=== PATIENT | female | born 1990 | race American Indian/Alaskan Native ===

== ENCOUNTER 2016-04-03 16:20 | Emergency (ER) | payer MEDICAID | END 2016-04-03 17:04 | disposition left against medical advice (07) | LOC: ED 16:20 | DX: Z53.21 Procedure and treatment not carried out due to patient leaving prior to being seen by health care provider (principal) ==

== ENCOUNTER 2016-08-29 15:33 | Emergency (ER) | payer MEDICAID ==
[2016-08-29] MEDS ORDERED: MOTRIN PO ONE (16:14)
--- NOTE | 2016-08-29 16:43 | Emergency Department Report ---
ED Syncope HPI - General Chief Complaint: Syncope Stated Complaint: SYNCOPE EPISODE Time Seen by Provider: 08/29/16 16:06 Source: patient, EMS Exam Limitations: no limitations - History of Present Illness Initial Comments: 26-year-old female presents to the emergency department via EMS following a syncopal episode. Patient states that earlier today she tripped and fell while walking her dog. She states she hit her back on the sidewalk. She was going to come to the emergency department at that time, but her dog ran away. She states she tried to go after her dog, but he came extremely hot. She reports feeling lightheaded. She then sat down, and states the next thing she remembers the paramedics were at her side. She denies chest pain or shortness of breath prior to passing out. There were no palpitations. Patient is complaining of low back pain secondary to the fall. She denies numbness or tingling. There has been no nausea or vomiting. There are no other complaints. Timing/Prior Episodes: single episode today Precipitating Factors: Positive: lightheadedness Context: activity Loss of Consciousness: brief (seconds) Current Symptoms: back to normal - Related Data Allergies/Adverse Reactions: Allergies No Known Allergies Allergy (Verified 05/19/15 01:37) Home Medications: Ambulatory Orders Cyclobenzaprine [Flexeril] 10 mg PO TID PRN #14 tablet 08/29/16 ED Review of Systems ROS: Stated complaint: SYNCOPE EPISODE Other details as noted in HPI Comment: All other systems reviewed and negative Cardiovascular: syncope Musculoskeletal: back pain ED Past Medical Hx - Past Medical History Previous Medical History?: Yes Hx Seizures: Yes Hx Psychiatric Treatment: Yes (bipolar, ADHD) Hx Asthma: Yes - Surgical History Past Surgical History?: Yes Additional Surgical History: skin graft - Family History Family history: no significant - Social History Smoking Status: Never Smoker Substance Use Type: None - Medications Home Medications: Home Medications Medication Instructions Recorded Confirmed Last Taken Type Cyclobenzaprine [Flexeril] 10 mg PO TID PRN #14 tablet 08/29/16 Unknown Rx ED Physical Exam - General Limitations: No Limitations General appearance: alert, in no apparent distress - Head Head exam: Present: atraumatic, normocephalic - Eye Eye exam: Present: normal appearance, PERRL, EOMI - ENT ENT exam: Present: normal exam, normal orophraynx, mucous membranes moist - Neck Neck exam: Present: normal inspection, full ROM. Absent: tenderness - Respiratory Respiratory exam: Present: normal lung sounds bilaterally. Absent: respiratory distress - Cardiovascular Cardiovascular Exam: Present: regular rate, normal rhythm, normal heart sounds - GI/Abdominal GI/Abdominal exam: Present: soft, normal bowel sounds. Absent: distended, tenderness - Extremities Exam Extremities exam: Present: normal inspection, full ROM. Absent: tenderness - Back Exam Back exam: Present: normal inspection, full ROM, tenderness, muscle spasm, paraspinal tenderness (bilateral lumbar to lower thoracic region). Absent: vertebral tenderness - Neurological Exam Neurological exam: Present: alert, oriented X3. Absent: motor sensory deficit - Skin Skin exam: Present: warm, dry, intact ED Course Vital Signs 08/29/16 08/29/16 08/29/16 16:10 17:49 17:55 Temperature 98.8 F Pulse Rate 75 93 H Respiratory 16 18 18 Rate Blood Pressure 122/44 Blood Pressure 122/44 104/55 [Left] O2 Sat by Pulse 96 99 Oximetry ED Medical Decision Making - Lab Data Result diagrams: 08/29/16 16:33 08/29/16 16:33 - Medical Decision Making Lab results reviewed and discussed with the patient. Patient reports feeling better following IV fluids and oral Flexeril. Patient will be discharged home at this time. - Differential Diagnosis vasovagal syncope, dehydration, muscle spasm Critical care attestation.: If time is entered above; I have spent that time in minutes in the direct care of this critically ill patient, excluding procedure time. ED Disposition Clinical Impression: Syncope and collapse, Muscle spasm of back Disposition: DC-01 TO HOME OR SELFCARE Is pt being admited?: No Condition: Stable Instructions: Syncope (ED), Muscle Spasm (ED) Prescriptions: Cyclobenzaprine [Flexeril] 10 mg PO TID PRN #14 tablet PRN Reason: Muscle Spasm Referrals: PRIMARY CARE, [Primary Care Provider] - 3-5 Days Time of Disposition: 19:07
[2016-08-29 16:51] LABS: Basophils % (Auto) 0.4 % (0.0-1.8); Hematocrit 36.7 % (30.3-42.9); Hemoglobin 11.9 gm/dl (10.1-14.3); Mean Corpuscular HGB Conc 33 % (30-34); Mean Corpuscular Hemoglobin 27 pg (28-32); Mean Corpuscular Volume 83 fl (79-97); Platelet Count 229 K/mm3 (140-440); Red Blood Count 4.41 M/mm3 (3.65-5.03); Red Cell Distribution Width 14.9 % (13.2-15.2); White Blood Count 8.4 K/mm3 (4.5-11.0)
[2016-08-29] MEDS ORDERED: NACL 0.9% 1000 ML 1,000 ML ONE (16:58)
[2016-08-29 17:08] LABS: Anion Gap 17 mmol/L; BUN/Creatinine Ratio 11.42; Blood Urea Nitrogen 8 mg/dL (7-17); Calcium 8.2 mg/dL (8.4-10.2); Carbon Dioxide 23 mmol/L (22-30); Chloride 99.9 mmol/L (98-107); Glucose 81 mg/dL (65-100); Potassium 3.6 mmol/L (3.6-5.0); Sodium 136 mmol/L (137-145)
[2016-08-29] MEDS ORDERED: NACL 0.9% 1000 ML 1,000 ML IV ONE (17:08)
[2016-08-29] MEDS ORDERED: FLEXERIL PO ONE (17:45)
[2016-08-29 18:24] VITALS: BP 104/55
== END 2016-08-29 19:15 | disposition home or self-care (01) ==
LOC: ED 15:33
DX: R55 Syncope and collapse (principal); M62.830 Muscle spasm of back; F31.9 Bipolar disorder, unspecified; J45.909 Unspecified asthma, uncomplicated
CPT/HCPCS: 36415; 80048; 83735; 84703; 85025; 96360; 99284; J7030

== ENCOUNTER 2016-10-26 15:01 | Emergency (ER) | payer MEDICAID ==
[2016-10-26] MEDS ORDERED: TYLENOL #3 PO ONE (18:39)
--- NOTE | 2016-10-26 18:45 | Emergency Department Report ---
ED General Adult HPI - General Chief complaint: Dental/Oral Stated complaint: TOOTHACHE Time Seen by Provider: 10/26/16 18:39 Source: patient, RN notes reviewed Mode of arrival: Ambulatory Limitations: No Limitations - History of Present Illness Initial comments: This is a 26-year-old female. She is previously unknown to me. She reports that she is not . She presents to the ER today complaining of dental pain in her right lower molar, tooth #32. The pain is sharp. It is achy. It increases with palpation and when she eats and drinks. She endorses cold sensitivity. Denies fevers, chills, chest pain, shortness of breath, abdominal pain. -: Gradual Location: mouth Radiation: non-radiation Quality: aching Consistency: intermittent Improves with: rest Worsens with: eating Associated Symptoms: denies other symptoms - Related Data Previous Rx's Medication Instructions Recorded Last Taken Type Cyclobenzaprine [Flexeril] 10 mg PO TID PRN #14 tablet 08/29/16 Unknown Rx Chlorhexidine Mouthwash [Peridex] 15 ml MM BID #1 bottle 10/26/16 Unknown Rx Ibuprofen [Motrin] 600 mg PO Q8H PRN #30 tablet 10/26/16 Unknown Rx oxyCODONE [Roxicodone] 5 mg PO Q6HR PRN #15 tablet 10/26/16 Unknown Rx Allergies Allergy/AdvReac Type Severity Reaction Status Date / Time No Known Allergies Allergy Verified 05/19/15 01:37 ED Review of Systems ROS: Stated complaint: TOOTHACHE Other details as noted in HPI Constitutional: denies: fever Eyes: denies: eye discharge ENT: dental pain. denies: epistaxis Respiratory: denies: cough Cardiovascular: denies: chest pain Gastrointestinal: denies: abdominal pain Genitourinary: as per HPI Musculoskeletal: as per HPI Skin: as per HPI Neurological: as per HPI Psychiatric: as per HPI ED Past Medical Hx - Past Medical History Hx Seizures: Yes Hx Psychiatric Treatment: Yes (bipolar, ADHD) Hx Asthma: Yes - Surgical History Additional Surgical History: skin graft - Social History Smoking Status: Never Smoker Substance Use Type: None - Medications Home Medications: Home Medications Medication Instructions Recorded Confirmed Last Taken Type Cyclobenzaprine [Flexeril] 10 mg PO TID PRN #14 tablet 08/29/16 Unknown Rx Chlorhexidine Mouthwash [Peridex] 15 ml MM BID #1 bottle 10/26/16 Unknown Rx Ibuprofen [Motrin] 600 mg PO Q8H PRN #30 tablet 10/26/16 Unknown Rx oxyCODONE [Roxicodone] 5 mg PO Q6HR PRN #15 tablet 10/26/16 Unknown Rx ED Physical Exam - General Limitations: No Limitations General appearance: alert, in no apparent distress - Head Head exam: Present: atraumatic, normocephalic - Eye Eye exam: Present: normal appearance, EOMI. Absent: nystagmus - ENT ENT exam: Present: normal exam, normal orophraynx, mucous membranes moist, normal external ear exam, other (there is no stridor, dysphonia, trismus. The patient is speaking in full sentences. Tooth #32 is tender to palpation. There is no periapical abscess. There is no elevation of the base of the tongue.) - Neck Neck exam: Present: normal inspection, full ROM - Respiratory Respiratory exam: Present: normal lung sounds bilaterally. Absent: respiratory distress, wheezes, rales, rhonchi, stridor, chest wall tenderness, accessory muscle use, decreased breath sounds, prolonged expiratory - Cardiovascular Cardiovascular Exam: Present: regular rate, normal rhythm, normal heart sounds. Absent: bradycardia, tachycardia, irregular rhythm, systolic murmur, diastolic murmur, rubs, gallop - GI/Abdominal GI/Abdominal exam: Present: soft, normal bowel sounds. Absent: distended, tenderness, guarding, rebound, rigid, pulsatile mass - Extremities Exam Extremities exam: Present: normal inspection, full ROM, normal capillary refill. Absent: pedal edema, joint swelling, calf tenderness - Back Exam Back exam: Present: normal inspection, full ROM. Absent: tenderness, CVA tenderness (R), CVA tenderness (L), muscle spasm, paraspinal tenderness, vertebral tenderness - Neurological Exam Neurological exam: Present: alert, oriented X3, normal gait, other (Extraocular movements intact. Tongue midline. No facial droop. Facial sensation intact to light touch in the V1, V2, V3 distribution bilaterally. 5 and 5 strength in 4 extremities.. Sensation is intact to light touch in 4 extremities.). Absent : motor sensory deficit - Psychiatric Psychiatric exam: Present: normal affect, normal mood - Skin Skin exam: Present: warm, dry, intact, normal color. Absent: rash ED Course Vital Signs 10/26/16 10/26/16 16:09 19:16 Temperature 98.5 F Pulse Rate 79 80 Respiratory 18 18 Rate Blood Pressure 109/79 Blood Pressure 110/80 [Right] O2 Sat by Pulse 100 100 Oximetry ED Medical Decision Making - Lab Data Vital Signs 10/26/16 16:09 Temperature 98.5 F Pulse Rate 79 Respiratory 18 Rate Blood Pressure 109/79 O2 Sat by Pulse 100 Oximetry - Medical Decision Making Differential diagnosis: Dental caries, dentalgia Assessment and plan: 26-year-old female with 3 months of chronic dentalgia. She is afebrile with reassuring vital signs, with no indication of imminent airway obstruction. She will be discharged with ibuprofen, oxycodone, chlorhexidine mouthwash, and she is given information about low cost local dental clinics. Return precautions are reviewed. Critical care attestation.: If time is entered above; I have spent that time in minutes in the direct care of this critically ill patient, excluding procedure time. ED Disposition Clinical Impression: Dentalgia Disposition: TO HOME OR SELFCARE Is pt being admited?: No Does the pt Need Aspirin: No Condition: Stable Instructions: Dental Caries (ED) Additional Instructions: Take the medications as directed. Follow up with a dentist as soon as possible. Return to the ER right away with fevers, chills, chest pain, shortness of breath, intractable nausea or vomiting, inability to tolerate liquid feeds, inability to speak, and ability to breathe. Prescriptions: Chlorhexidine Mouthwash [Peridex] 15 ml MM BID #1 bottle Ibuprofen [Motrin] 600 mg PO Q8H PRN #30 tablet PRN Reason: Pain oxyCODONE [Roxicodone] 5 mg PO Q6HR PRN #15 tablet PRN Reason: Pain Referrals: PRIMARY CARE, [Primary Care Provider] - 3-5 Days ED FLORES MD [Staff Physician] - 3-[address] [facility] [Outside] - 3-5 Days
[2016-10-26 19:20] VITALS: BP 110/80
== END 2016-10-26 19:16 | disposition home or self-care (01) ==
LOC: ED 15:01
DX: K08.89 Other specified disorders of teeth and supporting structures (principal); J45.909 Unspecified asthma, uncomplicated
CPT/HCPCS: 99282

== ENCOUNTER 2016-11-17 21:34 | Emergency (ER) | payer MEDICAID ==
[2016-11-18] MEDS ORDERED: PROVENTIL IH ONE (01:31)
[2016-11-18 02:01] VITALS: BP 130/74
[2016-11-18] MEDS ORDERED: NORCO 10/325 PO ONE (03:05)
[2016-11-18] MEDS ORDERED: TORADOL IM ONE (03:05)
--- NOTE | 2016-11-18 03:39 | Emergency Department Report ---
ED General Adult HPI - General Chief complaint: Upper Respiratory Infection Stated complaint: ROSI/BACK PAIN/BODY PAIN Time Seen by Provider: 11/18/16 01:19 Source: patient Mode of arrival: Ambulatory Limitations: No Limitations - History of Present Illness Initial comments: Patient is a 26-year-old female past medical history of chronic leg and back pain who presents with cough multiple medical complaints and leg pain. She states that her cough and her the pain in her legs are severe in symptoms. They 've been going on for the last 6 months. She states her leg pain is bilateral in both legs and it is an 8 out of 10 it is intermittent. Nothing makes it better or worse. She's been to several medical providers with these conditions and she states no one has been able to figure out what's going on. Patient also reports having cough and slight shortness of breath. She is unaware she had any sick contacts. Patient has no other complaints. Severity scale (0 -10): 6 - Related Data Previous Rx's Medication Instructions Recorded Last Taken Type Cyclobenzaprine [Flexeril] 10 mg PO TID PRN #14 tablet 08/29/16 Unknown Rx Chlorhexidine Mouthwash [Peridex] 15 ml MM BID #1 bottle 10/26/16 Unknown Rx Ibuprofen [Motrin] 600 mg PO Q8H PRN #30 tablet 10/26/16 Unknown Rx oxyCODONE [Roxicodone] 5 mg PO Q6HR PRN #15 tablet 10/26/16 Unknown Rx Phenylephrine/Dm/Acetaminop/GG 1 each PO Q8HR PRN #30 tablet 11/18/16 Unknown Rx [Tylenol Cold & Flu Severe Cplt] Allergies Allergy/AdvReac Type Severity Reaction Status Date / Time No Known Allergies Allergy Verified 05/19/15 01:37 ED Review of Systems ROS: Stated complaint: ROSI/BACK PAIN/BODY PAIN Other details as noted in HPI Constitutional: malaise. denies: chills, fever Eyes: denies: eye pain, eye discharge, vision change ENT: denies: ear pain, throat pain Respiratory: cough, shortness of breath. denies: wheezing Cardiovascular: denies: chest pain, palpitations Endocrine: no symptoms reported Gastrointestinal: denies: abdominal pain, nausea, diarrhea Genitourinary: denies: urgency, dysuria, discharge Musculoskeletal: back pain, myalgia. denies: joint swelling, arthralgia Skin: denies: rash, lesions Neurological: denies: headache, weakness, paresthesias Psychiatric: denies: anxiety, depression Hematological/Lymphatic: denies: easy bleeding, easy bruising ED Past Medical Hx - Past Medical History Hx Seizures: Yes Hx Psychiatric Treatment: Yes (bipolar, ADHD) Hx Asthma: Yes - Surgical History Additional Surgical History: skin graft - Social History Smoking Status: Never Smoker Substance Use Type: None - Medications Home Medications: Home Medications Medication Instructions Recorded Confirmed Last Taken Type Cyclobenzaprine [Flexeril] 10 mg PO TID PRN #14 tablet 08/29/16 Unknown Rx Chlorhexidine Mouthwash [Peridex] 15 ml MM BID #1 bottle 10/26/16 Unknown Rx Ibuprofen [Motrin] 600 mg PO Q8H PRN #30 tablet 10/26/16 Unknown Rx oxyCODONE [Roxicodone] 5 mg PO Q6HR PRN #15 tablet 10/26/16 Unknown Rx Phenylephrine/Dm/Acetaminop/GG 1 each PO Q8HR PRN #30 tablet 11/18/16 Unknown Rx [Tylenol Cold & Flu Severe Cplt] ED Physical Exam - General Limitations: No Limitations General appearance: alert, in no apparent distress - Head Head exam: Present: atraumatic, normocephalic - Eye Eye exam: Present: normal appearance - ENT ENT exam: Present: mucous membranes moist - Neck Neck exam: Present: normal inspection - Respiratory Respiratory exam: Present: normal lung sounds bilaterally. Absent: respiratory distress - Cardiovascular Cardiovascular Exam: Present: regular rate, normal rhythm. Absent: systolic murmur, diastolic murmur, rubs, gallop - GI/Abdominal GI/Abdominal exam: Present: soft, normal bowel sounds - Extremities Exam Extremities exam: Present: normal inspection - Back Exam Back exam: Present: normal inspection - Neurological Exam Neurological exam: Present: alert, oriented X3 - Psychiatric Psychiatric exam: Present: normal affect, normal mood - Skin Skin exam: Present: warm, dry, intact, normal color. Absent: rash ED Course Vital Signs 11/17/16 11/18/16 11/18/16 22:50 02:00 02:22 Temperature 98.7 F 98 F Pulse Rate 89 74 Pulse Rate [ 72 Anterior Bilateral Throughout] Respiratory 18 Rate Respiratory 16 Rate [Anterior Bilateral Throughout] Blood Pressure 134/73 Blood Pressure 130/74 [Left] O2 Sat by Pulse 100 Oximetry 11/18/16 02:42 Temperature Pulse Rate Pulse Rate [ 76 Anterior Bilateral Throughout] Respiratory Rate Respiratory 16 Rate [Anterior Bilateral Throughout] Blood Pressure Blood Pressure [Left] O2 Sat by Pulse Oximetry ED Medical Decision Making - Radiology Data Radiology results: report reviewed, image reviewed interpreted by me: Chest x-ray: Shows no acute cardiopulmonary disease - Medical Decision Making Chief medical diagnosis: Viral syndrome Differential medical diagnosis: asthma exacerbation, pneumonia, I will give patient chest x-ray, albuterol breathing treatment, and oral analgesic pain medication Patient states she feels a little bit better but still in pain so severe that she needs all her primary care provider chest x-ray is unremarkable. I will send the patient home. Critical care attestation.: If time is entered above; I have spent that time in minutes in the direct care of this critically ill patient, excluding procedure time. ED Disposition Clinical Impression: SOB (shortness of breath), Chest wall pain, Myalgia, Multiple complaints Disposition: TO HOME OR SELFCARE Is pt being admited?: No Does the pt Need Aspirin: No Condition: Stable Instructions: Musculoskeletal Pain (ED) Prescriptions: Phenylephrine/Dm/Acetaminop/GG [Tylenol Cold & Flu Severe Cplt] 1 each PO Q8HR PRN #30 tablet PRN Reason: Pain Referrals: PRIMARY CARE, [Primary Care Provider] - 3-5 Days Forms: Work/School Release Form(ED)
--- NOTE | 2016-11-18 09:43 | XRay Report ---
AP CHEST: HISTORY: Difficulty breathing AP view of the chest demonstrates a normal mediastinal and cardiac contour with clear lungs and normal bony and soft tissue structures. IMPRESSION: Unremarkable AP chest.
== END 2016-11-18 04:30 | disposition home or self-care (01) ==
LOC: ED 21:34
DX: R06.02 Shortness of breath (principal); R07.89 Other chest pain; M79.1 Myalgia; F31.9 Bipolar disorder, unspecified; J45.909 Unspecified asthma, uncomplicated
CPT/HCPCS: 71010; 93005; 93010; 94640; 96372; 99283; J1885

== ENCOUNTER 2017-09-10 16:37 | Emergency (ER) | payer MEDICAID ==
[2017-09-10 18:28] LABS: Hematocrit 38.1 % (30.3-42.9); Hemoglobin 12.6 gm/dl (10.1-14.3); Mean Corpuscular HGB Conc 33 % (30-34); Mean Corpuscular Hemoglobin 28 pg (28-32); Mean Corpuscular Volume 83 fl (79-97); Platelet Count 279 K/mm3 (140-440); Red Blood Count 4.57 M/mm3 (3.65-5.03); Red Cell Distribution Width 15.4 % (13.2-15.2)
[2017-09-10] MEDS ORDERED: NACL 0.9% 1000 ML 1,000 ML IV ONE (18:52)
--- NOTE | 2017-09-10 18:56 | Emergency Department Report ---
ED Seizure HPI - General Chief Complaint: Seizure Stated Complaint: SEIZURE Time Seen by Provider: 09/10/17 17:47 Source: family, EMS Mode of arrival: Stretcher Limitations: Altered Mental Status - History of Present Illness Initial Comments: Ms Peterson is a 27 year-old woman with reported hx of seizure disorder who presents after three witnessed seizures. One with EMS which abated with 2mg ativan. Patient is sleepy but arousable. Unable to elicit whether or not she has been taking her meds which are keppra and phenobarbital. Boyfriend was witness to all three seizures, had first while in swimming pool, head did not go under water. MD Complaint: seizure -: Sudden Description of Episode: loss of consciousness, tonic-clonic movement Seizure History: known seizure disorder Place: street/outdoors Possible Precipitating Event: none Treatments Prior to Arrival: benzodiazepines - Related Data Previous Rx's Medication Instructions Recorded Last Taken Type Cyclobenzaprine [Flexeril] 10 mg PO TID PRN #14 tablet 08/29/16 Unknown Rx Chlorhexidine Mouthwash [Peridex] 15 ml MM BID #1 bottle 10/26/16 Unknown Rx Ibuprofen [Motrin] 600 mg PO Q8H PRN #30 tablet 10/26/16 Unknown Rx oxyCODONE [Roxicodone] 5 mg PO Q6HR PRN #15 tablet 10/26/16 Unknown Rx Phenylephrine/Dm/Acetaminop/GG 1 each PO Q8HR PRN #30 tablet 11/18/16 Unknown Rx [Tylenol Cold & Flu Severe Cplt] Allergies Allergy/AdvReac Type Severity Reaction Status Date / Time No Known Allergies Allergy Verified 05/19/15 01:37 ED Review of Systems ROS: Stated complaint: SEIZURE Other details as noted in HPI Comment: Unobtainable due to pts medical conditions ED Past Medical Hx - Past Medical History Hx Seizures: Yes Hx Psychiatric Treatment: Yes (bipolar, ADHD) Hx Asthma: Yes - Surgical History Additional Surgical History: skin graft - Social History Smoking Status: Never Smoker Substance Use Type: None - Medications Home Medications: Home Medications Medication Instructions Recorded Confirmed Last Taken Type Cyclobenzaprine [Flexeril] 10 mg PO TID PRN #14 tablet 08/29/16 Unknown Rx Chlorhexidine Mouthwash [Peridex] 15 ml MM BID #1 bottle 10/26/16 Unknown Rx Ibuprofen [Motrin] 600 mg PO Q8H PRN #30 tablet 10/26/16 Unknown Rx oxyCODONE [Roxicodone] 5 mg PO Q6HR PRN #15 tablet 10/26/16 Unknown Rx Phenylephrine/Dm/Acetaminop/GG 1 each PO Q8HR PRN #30 tablet 11/18/16 Unknown Rx [Tylenol Cold & Flu Severe Cplt] ED Physical Exam - General Limitations: Altered Mental Status General appearance: alert, in no apparent distress - Head Head exam: Present: atraumatic, normocephalic - Eye Eye exam: Present: normal appearance, PERRL, EOMI - ENT ENT exam: Present: normal exam, mucous membranes moist - Neck Neck exam: Present: normal inspection - Respiratory Respiratory exam: Present: normal lung sounds bilaterally. Absent: respiratory distress - Cardiovascular Cardiovascular Exam: Present: regular rate, normal rhythm. Absent: systolic murmur, diastolic murmur, rubs, gallop - GI/Abdominal GI/Abdominal exam: Present: soft. Absent: distended, tenderness, guarding - Extremities Exam Extremities exam: Present: normal inspection - Back Exam Back exam: Present: normal inspection - Neurological Exam Neurological exam: Present: alert, oriented X3, normal gait - Psychiatric Psychiatric exam: Present: normal affect, normal mood - Skin Skin exam: Present: warm, dry, intact, normal color. Absent: rash ED Course Vital Signs 09/10/17 09/10/17 17:45 19:17 Temperature 97.8 F Pulse Rate 71 75 Respiratory 18 17 Rate Blood Pressure 104/62 Blood Pressure 109/66 [Right] O2 Sat by Pulse 100 99 Oximetry ED Medical Decision Making - Lab Data Result diagrams: 09/10/17 18:13 09/10/17 18:13 Lab Results 09/10/17 09/10/17 09/10/17 Range/Units 17:37 18:13 18:13 WBC 9.7 (4.5-11.0) K/mm3 RBC 4.57 (3.65-5.03) M/mm3 Hgb 12.6 (10.1-14.3) gm/dl Hct 38.1 (30.3-42.9) % MCV 83 (79-97) fl MCH 28 (28-32) pg MCHC 33 (30-34) % RDW 15.4 H (13.2-15.2) % Plt Count 279 (140-440) K/mm3 Sodium 140 (137-145) mmol/L Potassium 4.0 (3.6-5.0) mmol/L Chloride 101.4 (98-107) mmol/L Carbon Dioxide 28 (22-30) mmol/L Anion Gap 15 mmol/L BUN 11 (7-17) mg/dL Creatinine 0.8 (0.7-1.2) mg/dL Estimated GFR > 60 ml/min BUN/Creatinine Ratio 14 % Glucose 87 (65-100) mg/dL POC Glucose 73 (70-105) Calcium 9.2 (8.4-10.2) mg/dL - Medical Decision Making Ms Peterson is a 27 year-old woman who presents after three seizures. had 2mg Ativan with EMS. Reported hx of seizures on keppra and phenobarbital. No evidence of trauma on exam. Sleepy on arrival, but oriented x3. Suspect this is seizure due to medication non-compliance vs electrolyte derangement, infection. No infectious symptoms. Labs wnl. Now AAOx3. Reports she has not been taking her meds for a while because she wasnt having seizures. She does not know her doses, but reports having her RXs at home. PCP prescribes. Unable to run phenobarbital level in lab due to equipment malfunction. is now ambualtory, backto baseline. Giving 500mg keppra and encoruage her to continue meds at home. Will not give phenobarb as she does not know her dose. Has pcp follow-up and likely cause, medication non-compliance. has meds at home. dc to home with care instructions and return precautions. Critical care attestation.: If time is entered above; I have spent that time in minutes in the direct care of this critically ill patient, excluding procedure time. ED Disposition Clinical Impression: Seizure Disposition: DC-01 TO HOME OR SELFCARE Is pt being admited?: No Does the pt Need Aspirin: No Condition: Stable Instructions: Epilepsy (ED), Recurrent Seizures Adult (ED) Additional Instructions: Please take your phenobarbital and keppra as prescribed by your doctor. You were given 500mg keppra here in the ED. Referrals: PRIMARY CARE,MD [Primary Care Provider] - 3-5 Days
[2017-09-10 19:13] LABS: BUN/Creatinine Ratio 14; Blood Urea Nitrogen 11 mg/dL (7-17); Calcium 9.2 mg/dL (8.4-10.2); Hemolysis Index 4
[2017-09-10 19:24] VITALS: BP 104/62
[2017-09-10] MEDS ORDERED: KEPPRA PO ONE (19:31)
== END 2017-09-10 20:30 | disposition home or self-care (01) ==
LOC: ED 16:37
DX: R56.9 Unspecified convulsions (principal); F31.9 Bipolar disorder, unspecified; J45.909 Unspecified asthma, uncomplicated
CPT/HCPCS: 36415; 80048; 80184; 82962; 85027; 99284; J7030

== ENCOUNTER 2017-12-07 16:35 | Emergency (ER) | payer MEDICAID ==
[2017-12-07] MEDS ORDERED: NACL 0.9% 1000 ML 1,000 ML IV ONE (17:10)
[2017-12-07] MEDS ORDERED: MORPHINE IV ONE ×3 (17:10→18:00)
[2017-12-07] MEDS ORDERED: ZOFRAN IV ONE (17:10)
[2017-12-07] MEDS ORDERED: XYLOCAINE 2% INFILTRATI ONE (17:12)
[2017-12-07] MEDS ORDERED: XYLOCAINE MPF 2% INFILTRATI ONE (18:00)
[2017-12-07 18:05] LABS: Basophils # (Auto) 0.1 K/mm3 (0.0-0.1); Basophils % (Auto) 0.6 % (0.0-1.8); Eosinophils % (Auto) 0.5 % (0.0-4.3); Hematocrit 36.9 % (30.3-42.9); Hemoglobin 12.3 gm/dl (10.1-14.3); Lymphocytes # (Auto) 1.7 K/mm3 (1.2-5.4); Mean Corpuscular HGB Conc 33 % (30-34); Mean Corpuscular Hemoglobin 28 pg (28-32); Mean Corpuscular Volume 84 fl (79-97); Monocytes # (Auto) 0.6 K/mm3 (0.0-0.8); Monocytes % (Auto) 6.7 % (0.0-7.3); Platelet Count 290 K/mm3 (140-440); Red Blood Count 4.41 M/mm3 (3.65-5.03); Red Cell Distribution Width 15.6 % (13.2-15.2)
[2017-12-07 18:16] LABS: BUN/Creatinine Ratio 20; Blood Urea Nitrogen 12 mg/dL (7-17); Calcium 8.9 mg/dL (8.4-10.2); Hemolysis Index 10
[2017-12-07 18:29] LABS: INR 1.04 (0.87-1.13)
--- NOTE | 2017-12-07 18:48 | Emergency Department Report ---
HPI - General Chief Complaint: Headache Time Seen by Provider: 12/07/17 17:08 - HPI HPI: The patient is a 27-year-old female presents for evaluation of head injury. The patient states that she slipped and fell in her bathroom and struck her head on the toilet, approximately 30 mins prior to arrival. She complains of a constant mild in severity aching frontal headache, and upper and lower back pain. She is unsure if she lost consciousness. The patient denies fever, chest pain, dyspnea, abdominal pain, pain to extremities, nausea, vision or hearing changes, smell or taste changes, paresthesias, facial drooping, slurred speech, seizure-like activity, urine or bowel incontinence or retention, or other focal neurological deficit. ED Past Medical Hx - Past Medical History Hx Seizures: Yes Hx Psychiatric Treatment: Yes (bipolar, ADHD) Hx Asthma: Yes - Surgical History Additional Surgical History: skin graft - Social History Smoking Status: Unknown if ever smoked Substance Use Type: None - Medications Home Medications: Home Medications Medication Instructions Recorded Confirmed Last Taken Type Cyclobenzaprine [Flexeril] 10 mg PO TID PRN #14 tablet 08/29/16 Unknown Rx Chlorhexidine Mouthwash [Peridex] 15 ml MM BID #1 bottle 10/26/16 Unknown Rx Ibuprofen [Motrin] 600 mg PO Q8H PRN #30 tablet 10/26/16 Unknown Rx oxyCODONE [Roxicodone] 5 mg PO Q6HR PRN #15 tablet 10/26/16 Unknown Rx Phenylephrine/Dm/Acetaminop/GG 1 each PO Q8HR PRN #30 tablet 11/18/16 Unknown Rx [Tylenol Cold & Flu Severe Cplt] ED Review of Systems ROS: Stated complaint: GLF AT HOME Other details as noted in HPI Constitutional: denies: fever ENT: denies: throat or neck pain Respiratory: denies: cough, shortness of breath Cardiovascular: denies: chest pain Endocrine: denies unexplained weight loss or gain Gastrointestinal: denies: abdominal pain, nausea Genitourinary: denies: dysuria Musculoskeletal: reports bacl pain denies: leg swelling Skin: denies: rash Neurological: reports: headache Hematological/Lymphatic: denies: easy bleeding or easy bruising Psych: denies sadness or hopelessness Physical Exam - Physical Exam Vital Signs: Vital Signs 12/07/17 17:16 Temperature 98.7 F Pulse Rate 98 H Blood Pressure 113/66 Physical Exam: General: well-nourished, well-developed, no acute distress Head: Normocephalic, atraumatic Eyes: normal sclera ENT: Mucous membranes are pink and moist Neck: trachea midline, in cervical collar, no cervical adenopathy Respiratory: Breath sounds equal bilaterally, no wheezing, rales, or rhonchi Cardio: S1 and S2 present, no murmurs, rubs, gallops, capillary refill is brisk Abdomen: Normoactive bowel sounds, soft abdomen, no tenderness Musc: upper back and lower back tenderness to palpation present, no step-off or deformity, no sensation or motor deficit in the arms or legs bilaterally, reflexes and symmetric on DTR testing, No pitting edema of legs Skin: No rash Neuro: alert oriented x4, normal cognition, speech normal, PERRL, EOM intact, no facial drooping, no uvula or tongue deviation on protrusion, no deficit with rotation of neck or shoulder shrug, no obvious gross motor deficit in the upper or lower extremities with flexion or extension at the shoulder, elbow, wrist, hip, knee, or ankle bilaterally, no obvious gross sensation deficit to crude touch or 2 pt discrimination, 2+ symmetric reflexes on DTR testing, no coordination deficit with [id number] or [id number] testing, Babinski downgoing, Psych: Normal affect ED Course Vital Signs 12/07/17 17:16 Temperature 98.7 F Pulse Rate 98 H Blood Pressure 113/66 - Laceration /Wound Repair Left Upper Face Wound Location: head, face Wound Length (cm): 3 Wound's Depth, Shape: superficial Wound Explored: no foreign body removed Irrigated w/ Saline (ccs): 250 Betadine Prep?: Yes Anesthesia: 1% Lidocaine Volume Anesthetic (ccs): 5 Wound Repaired With: sutures Suture Size/Type: 5:0, nylon Number of Sutures: 4 Layer Closure?: No Sterile Dressing Applied?: Yes Progress: tolerated well ED Medical Decision Making - Lab Data Result diagrams: 12/07/17 17:40 12/07/17 17:40 - Medical Decision Making The patient was seen and examined by myself. The patient is placed on a youth nutritional monitor and continuous pulse ox. On initial evaluation, the patient was found to be in no distress. Evaluation orders were placed. The patient is given pain medicine. The patient was removed from backboard. Labs and imaging are obtained. Critical care attestation.: If time is entered above; I have spent that time in minutes in the direct care of this critically ill patient, excluding procedure time. ED Disposition Clinical Impression: Acute upper back pain, Orthostatic syncope Laceration of forehead without complication Qualifiers: Encounter type: initial encounter Qualified Code(s): S01.81XA - Laceration without foreign body of other part of head, initial encounter Acute posttraumatic headache Qualifiers: Intractability: not intractable Qualified Code(s): G44.319 - Acute post- traumatic headache, not intractable Disposition: DC- TO HOME OR SELFCARE Is pt being admited?: No Does the pt Need Aspirin: No Condition: Stable Instructions: Syncope (ED), Laceration (ED), Suture Care (ED) Additional Instructions: have your sutures removed in 12-14 days. Referrals: PRIMARY CARE, [Primary Care Provider] - 3-5 Days Time of Disposition: 21:23
--- NOTE | 2017-12-07 19:34 | Cat Scan Report ---
FINAL REPORT EXAM: CT HEAD/BRAIN WO CON HISTORY: headache, fall, frontal head trauma TECHNIQUE: 2.5 millimeter axial images from the skullbase to the vertex. Comparison: None FINDINGS: There is no evidence of an acute intracranial process, intracranial hemorrhage or mass effect. The ventricles are normal size. The visualized portions of the orbits, paranasal and mastoid sinuses are unremarkable. There is no evidence of fracture. IMPRESSION: 1. No evidence of an acute intracranial process, intracranial hemorrhage or mass effect.
--- NOTE | 2017-12-07 19:49 | Cat Scan Report ---
FINAL REPORT EXAM: CT CERVICAL SPINE WO CON HISTORY: lower neck posterior pain, sp fall TECHNIQUE: Axial helical imaging through the cervical spine with sagittal and coronal reformatted images obtained. Comparison: CT thoracic spine also performed today FINDINGS: Bony alignment is normal. The vertebral heights and disc spaces are maintained. There is no evidence of bony canal or foraminal stenosis. Visualization detail the contents of the cervical canal is limited by artifact.. There is no evidence of fracture or subluxation. The paraspinous soft tissues are unremarkable. IMPRESSION: 1. No evidence of fracture or subluxation of the cervical spine. 2. The contents of the cervical canal are not well visualized with this study.
--- NOTE | 2017-12-07 19:57 | Cat Scan Report ---
FINAL REPORT EXAM: CT THORACIC SPINE WO CON HISTORY: mid back pain, sp fall TECHNIQUE: Axial helical imaging through the thoracic spine with sagittal and coronal reformatted images obtained. Comparison: CT cervical spine also performed today FINDINGS: Bony alignment is normal. The vertebral heights and disc spaces are maintained. There is no evidence of bony canal or foraminal stenosis. Visualization detail the contents of the thoracic canal is limited by artifact. There is no evidence of fracture or subluxation. The paraspinous soft tissues are unremarkable. IMPRESSION: 1. No evidence of fracture or subluxation.
--- NOTE | 2017-12-07 20:14 | Cat Scan Report ---
FINAL REPORT EXAM: CT LUMBAR SPINE WO CON HISTORY: low back pain, sp fall TECHNIQUE: Axial helical imaging through the lumbar spine with sagittal and coronal reformatted images obtained. Comparison: CT thoracic spine also performed today FINDINGS: Bony alignment is normal. The vertebral heights and disc spaces are maintained. Visualization of detail of the contents of the lumbar canal is limited by artifact. There is no evidence of fracture or subluxation. The paraspinous soft tissues are unremarkable. IMPRESSION: 1. No evidence of fracture or subluxation of the lumbar spine.
[2017-12-07] MEDS ORDERED: SUBLIMAZE IV ONE (20:25)
[2017-12-07] MEDS ORDERED: NACL 0.9% 500 ML IR ONE (20:44)
[2017-12-07] MEDS ORDERED: BOOSTRIX IM ONE (21:25)
[2017-12-08 00:08] VITALS: BP 99/65
== END 2017-12-07 22:45 | disposition home or self-care (01) ==
LOC: ED 16:35
DX: S01.81XA Laceration without foreign body of other part of head, initial encounter (principal); G44.319 Acute post-traumatic headache, not intractable; M54.9 Dorsalgia, unspecified; R55 Syncope and collapse; F31.9 Bipolar disorder, unspecified; F90.9 Attention-deficit hyperactivity disorder, unspecified type; J45.909 Unspecified asthma, uncomplicated; W01.0XXA Fall on same level from slipping, tripping and stumbling without subsequent striking against object, initial encounter; Y93.89 Activity, other specified; Y92.002 Bathroom of unspecified non-institutional (private) residence as the place of occurrence of the external cause; Y99.8 Other external cause status
CPT/HCPCS: 12013; 36415; 70450; 72125; 72128; 72131; 80048; 84703; 85025; 85610; 85730; 93005; 93010; 96361; 96374; 96375; 99284; G0480; J2270; J2405; J3010; J7030; 80320

== ENCOUNTER 2018-01-01 19:29 | Emergency (ER) | payer MEDICAID ==
[2018-01-01] MEDS ORDERED: AUGMENTIN 875 MG PO ONE (23:31)
[2018-01-01] MEDS ORDERED: TYLENOL PO ONE (23:31)
[2018-01-01] MEDS ORDERED: REGLAN PO ONE (23:31)
[2018-01-01] MEDS ORDERED: BENADRYL PO ONE (23:31)
[2018-01-01] MEDS ORDERED: DECADRON IM ONE (23:31)
--- NOTE | 2018-01-02 00:24 | Emergency Department Report ---
ED Headache HPI - General Chief Complaint: Headache Stated Complaint: MIGRAINE Time Seen by Provider: 01/01/18 23:30 - History of Present Illness Initial Comments: Patient 27-year-old female who presents for a left parietal headache radiating to left eye and left ear with intermittent tinnitus but states nocturnal fever unknown MAXIMUM TEMPERATURE no fever noted tonight in triage patient denies dizziness no blurred vision no nausea vomiting symptoms are relieved by rest symptoms exacerbated by movement with head swimming Timing/Duration: 1 week Quality: moderate Head Injury Location: frontal Recent Head Trauma: no recent headache/trauma (fore head laceation 2 weeks ago no loc ), occasional headaches Associated Symptoms: denies symptoms Allergies/Adverse Reactions: Allergies No Known Allergies Allergy (Verified 05/19/15 01:37) Home Medications: Ambulatory Orders Cyclobenzaprine [Flexeril] 10 mg PO TID PRN #14 tablet 08/29/16 Chlorhexidine Mouthwash [Peridex] 15 ml MM BID #1 bottle 10/26/16 oxyCODONE [Roxicodone] 5 mg PO Q6HR PRN #15 tablet 10/26/16 Phenylephrine/Dm/Acetaminop/GG [Tylenol Cold & Flu Severe Cplt] 1 each PO Q8HR PRN #30 tablet 11/18/16 Ibuprofen [Motrin] 600 mg PO Q8H PRN #30 tablet 12/07/17 Acetaminophen [Tylenol] 975 mg PO QID PRN #30 capsule 01/02/18 Amoxicillin/Potassium Clav [Augmentin 875-125 Tablet] 1 each PO BID #20 tablet 01/02/18 Metoclopramide [Reglan] 10 mg PO ACHS PRN #30 tablet 01/02/18 diphenhydrAMINE [Benadryl CAP] 25 mg PO Q6HR PRN #30 capsule 01/02/18 ED Review of Systems ROS: Stated complaint: MIGRAINE Other details as noted in HPI Constitutional: fever. denies: chills Eyes: denies: eye pain, eye discharge, vision change ENT: ear pain Respiratory: denies: cough, shortness of breath, wheezing Cardiovascular: denies: chest pain, palpitations Endocrine: no symptoms reported Gastrointestinal: denies: abdominal pain, nausea, diarrhea Genitourinary: denies: urgency, dysuria, discharge Musculoskeletal: denies: back pain, joint swelling, arthralgia Skin: denies: rash, lesions Neurological: headache. denies: weakness, numbness, paresthesias, abnormal gait , vertigo Psychiatric: denies: anxiety, depression Hematological/Lymphatic: denies: easy bleeding, easy bruising ED Past Medical Hx - Past Medical History Previous Medical History?: Yes Hx Seizures: Yes Hx Psychiatric Treatment: Yes (bipolar, ADHD) Hx Asthma: Yes - Surgical History Past Surgical History?: Yes Additional Surgical History: skin graft - Social History Smoking Status: Former Smoker Substance Use Type: None - Medications Home Medications: Home Medications Medication Instructions Recorded Confirmed Last Taken Type Cyclobenzaprine [Flexeril] 10 mg PO TID PRN #14 tablet 08/29/16 Unknown Rx Chlorhexidine Mouthwash [Peridex] 15 ml MM BID #1 bottle 10/26/16 Unknown Rx oxyCODONE [Roxicodone] 5 mg PO Q6HR PRN #15 tablet 10/26/16 Unknown Rx Phenylephrine/Dm/Acetaminop/GG 1 each PO Q8HR PRN #30 tablet 11/18/16 Unknown Rx [Tylenol Cold & Flu Severe Cplt] Ibuprofen [Motrin] 600 mg PO Q8H PRN #30 tablet 12/07/17 Unknown Rx Acetaminophen [Tylenol] 975 mg PO QID PRN #30 capsule 01/02/18 Unknown Rx Amoxicillin/Potassium Clav 1 each PO BID #20 tablet 01/02/18 Unknown Rx [Augmentin 875-125 Tablet] Metoclopramide [Reglan] 10 mg PO ACHS PRN #30 tablet 01/02/18 Unknown Rx diphenhydrAMINE [Benadryl CAP] 25 mg PO Q6HR PRN #30 capsule 01/02/18 Unknown Rx ED Physical Exam - General Limitations: No Limitations General appearance: alert, in no apparent distress - Head Head exam: Present: atraumatic, normocephalic, normal inspection - Eye Eye exam: Present: normal appearance, PERRL, EOMI - ENT ENT exam: Present: mucous membranes moist - Expanded ENT Exam Expanded TM/Canal exam: Erythema: Left TM, Canal Tenderness: Left TM Mouth exam: Present: normal external inspection Teeth exam: Present: normal inspection Throat exam: Negative: normal inspection, tonsillar erythema, tonsillomegaly, tonsillar exudate, R peritonsillar mass, L peritonsillar mass - Neck Neck exam: Present: normal inspection. Absent: tenderness, full ROM (is discharged), lymphadenopathy, thyromegaly - Respiratory Respiratory exam: Present: normal lung sounds bilaterally. Absent: respiratory distress, wheezes, stridor, chest wall tenderness - Cardiovascular Cardiovascular Exam: Present: regular rate, normal rhythm. Absent: systolic murmur, diastolic murmur, rubs, gallop - GI/Abdominal GI/Abdominal exam: Present: soft, normal bowel sounds - Rectal Rectal exam: Present: deferred - Extremities Exam Extremities exam: Present: normal inspection - Back Exam Back exam: Present: normal inspection. Absent: CVA tenderness (R), CVA tenderness (L) - Neurological Exam Neurological exam: Present: alert, oriented X3, normal gait. Absent: motor sensory deficit, reflexes normal - Expanded Neurological Exam Expanded Patient oriented to: Present: person, place, time Speech: Present: fluid speech Cranial nerves: EOM's Intact: Normal, Gag Reflex: Normal, Tongue Deviation: Normal, Nystagmus: Normal, Facial Sensation: Normal, Facial Palsy with Forehead Movement: Normal, Facial Palsy without Forehead Movement: Normal Cerebellar function: Finger to Nose: Normal, Heel to Duong: Normal, Romberg: Normal Upper motor neuron: Taco Neglect: Normal, Pronator Drift: Normal, Babinski Sign : Normal, Sensory Extinction: Normal Sensory exam: Upper Extremity Light Touch: Normal, Upper Extremity Pin Prick: Normal, Upper Extremity Temperature: Normal, UE 2 Point Discrimination: Normal, Lower Extremity Light Touch: Normal, Lower Extremity Pin Prick: Normal, Lower Extremity Temperature: Normal, LE 2 Point Discrimination: Normal Motor strength exam: RUE: 5, LUE: 5, RLE: 5, LLE: 5 DTR: bicep (R): 2+, bicep (L): 2+, tricep (R): 2+, tricep (L): 2+, knee (R): 2+ , knee (L): 2+, ankle (R): 2+ Best Eye Response ([place]): (4) open spontaneously Best Motor Response ([place]): (6) obeys commands Best Verbal Response ([place]): (5) oriented [place] Total: 15 - Psychiatric Psychiatric exam: Present: normal affect, normal mood - Skin Skin exam: Present: warm, dry, intact, normal color. Absent: rash ED Course Vital Signs 01/01/18 20:16 Temperature 98.1 F Pulse Rate 93 H Respiratory 18 Rate Blood Pressure 133/68 O2 Sat by Pulse 98 Oximetry ED Medical Decision Making - Medical Decision Making sinus headache ,.AOM plan tx with augment, benadryl, reglan, tylenol as pt had good repsonse to same in ed, follow up with pcp in 2-3 days pt verbalized agreement and understanding with discharge plan. Critical care attestation.: If time is entered above; I have spent that time in minutes in the direct care of this critically ill patient, excluding procedure time. ED Disposition Clinical Impression: Sinus headache AOM (acute otitis media) Qualifiers: Otitis media type: serous Laterality: left Recurrence: not specified as recurrent Qualified Code(s): H65.02 - Acute serous otitis media, left ear Disposition: TO HOME OR SELFCARE Is pt being admited?: No Does the pt Need Aspirin: No Condition: Good Instructions: Otitis Media (ED), Acute Headache (ED) Prescriptions: Acetaminophen [Tylenol] 975 mg PO QID PRN #30 capsule PRN Reason: pain Amoxicillin/Potassium Clav [Augmentin 875-125 Tablet] 1 each PO BID #20 tablet diphenhydrAMINE [Benadryl CAP] 25 mg PO Q6HR PRN #30 capsule PRN Reason: Headache Metoclopramide [Reglan] 10 mg PO ACHS PRN #30 tablet PRN Reason: Headache Referrals: [facility] [Outside] - 3-5 Days Forms: Work/School Release Form(ED) Time of Disposition: 00:30
[2018-01-02 00:38] VITALS: BP 103/61
== END 2018-01-02 00:38 | disposition home or self-care (01) ==
LOC: ED 19:29
DX: H65.02 Acute serous otitis media, left ear (principal); R51 Headache; J45.909 Unspecified asthma, uncomplicated; Z87.891 Personal history of nicotine dependence
CPT/HCPCS: 93005; 93010; 99282; J1100